=== PATIENT | male | born 1965 | race Caucasian/White ===

== ENCOUNTER → 2016-07-02 | Outpatient (CLI) | payer BC | END | disposition home or self-care (01) | LOC: MRI 09:00 | DX: H74.8X1 Other specified disorders of right middle ear and mastoid (principal) ==

== ENCOUNTER → 2016-07-13 | Day surgery (SDC) | payer BC ==
[~2016-07-13] VITALS: Ht 190.5 cm; Wt 127.0 kg
[~2016-07-13] MED LIST: ATENOLOL50 M1 PO; HYDROCHLOROTHIA25 M1 PO; OMEPRAZOLE40 MG PO; SIMVASTATIN40 MG PO; XARE20MG PO
--- NOTE | ~2016-07-13 | O ---
[place], [place] OPERATIVE NOTE NAME: JOE LOZANO UNIT #: [id number] ROOM: DOCTOR: JOSE L MORRISON MD BIRTHDATE: [birth year] DOS: 07/13/2016 PREOPERATIVE DIAGNOSIS: Toxic labyrinthitis right ear. POSTOPERATIVE DIAGNOSIS: Toxic labyrinthitis right ear. OPERATION: Intratympanic dexamethasone perfusion right ear. SURGEON: Dr. Morrison. ANESTHESIA: General. OPERATIVE FINDINGS AND PROCEDURE: Following induction of general anesthesia the patient was positioned supine on the OR table, draped in a standard fashion for ear surgery. Approximately 1 mL of dexamethasone injection 10 mg/mL concentration was placed in the right middle ear space using a 25 gauge spinal needle. The patient tolerated the procedure well, was awakened and transported to PACU in satisfactory condition. JOSE L MORRISON MD CM:OPRECORD:OPERATIVE NOTE [id number] JOSE L MORRISON MD 07/13/16 0943 interface
[2016-07-13 08:45] VITALS: BP 161/87
[2016-07-13 09:29] VITALS: BP 114/68
[2016-07-13 09:34] VITALS: BP 131/74
[2016-07-13 09:52] VITALS: BP 151/83
[2016-07-13 09:58] VITALS: BP 145/83
== END | disposition home or self-care (01) ==
LOC: SDC 07-09 08:00
DX: H83.01 Labyrinthitis, right ear (principal); Z87.891 Personal history of nicotine dependence; I10 Essential (primary) hypertension; K21.9 Gastro-esophageal reflux disease without esophagitis; I48.92 Unspecified atrial flutter; Z82.49 Family history of ischemic heart disease and other diseases of the circulatory system; Z80.9 Family history of malignant neoplasm, unspecified

== ENCOUNTER → 2021-03-23 | Outpatient (CLI) | payer BC | END | disposition home or self-care (01) | LOC: COVID19 15:11 | PROVIDERS: ATTEND Internal Medicine | DX: U07.1 COVID-19 (principal) ==